=== PATIENT | male | born 1945 | race Caucasian/White ===

== ENCOUNTER 2021-02-08 23:26 | Emergency (ER) | payer MEDICARE, OTHER ==
[~2021-02-08 23:26] MED LIST: Sodium Chloride 0.9% 1,000 ML IV ONE
[2021-02-08] MEDS: EPINEPHrine 1:10,000 1 MG/10 ML Syringe IVPUSH PRN ×4 (23:30→23:45)
[2021-02-08] MEDS ORDERED: Sodium Bicarbonate 8.4% 50 MEQ/50 ML Syringe IVPUSH ONE (23:30)
--- NOTE | 2021-02-09 01:17 | EDM.PDOC ---
ED HPI GENERAL MEDICAL PROBLEM - General Chief Complaint: CPR in Progress Stated Complaint: CPR IN PROGRESS Time Seen by Provider: 02/08/21 23:26 Source of Information: Reports: EMS History Limitations: Reports: Other (non responsive) - History of Present Illness INITIAL COMMENTS - FREE TEXT/NARRATIVE: witnessed collapse by his .. CPR was started on the scene. h/o COPD, HTN and morbid obesity. EMS started CPR on the scene. Upon arrival to the ER - LMA was inserted. ACLS resuscitation was initiated. ED ROS GENERAL - Review of Systems Review Of Systems: Unable To Obtain Reason Not Obtained: due to non responsiveness ED EXAM, CPR - Physical Exam Exam: See Below Limited By: Unresponsive Course - Re-Assessments/Exams Free Text/Narrative Re-Assessment/Exam: Upon arrival patient was cyanosed and unresponsive. intubation by LMA IO x1 Multiple rounds of CPR - IV epi x5. pupils were fixed and dilated -- unresponsive announced at 23:50 Departure - Departure Time of Disposition: 01:20 Disposition: 20 Clinical Impression: Cardiac arrest - Discharge Information *PRESCRIPTION DRUG MONITORING PROGRAM REVIEWED*: Not Applicable *COPY OF PRESCRIPTION DRUG MONITORING REPORT IN PATIENT LARS: Not Applicable - Problem List & Annotations (1) Cardiac arrest SNOMED Code(s): 352859628 Code(s): I46.9 - CARDIAC ARREST, CAUSE UNSPECIFIED Status: Acute Priority: High - Problem List Review Problem List Initiated/Reviewed/Updated: Yes - Assessment/Plan Plan: - family on bedside - medical claims processor - follow hospital protocol
== END 2021-02-08 23:50 | disposition expired ==
LOC: LB.ED 23:26
DX: I46.9 Cardiac arrest, cause unspecified (principal)
CPT/HCPCS: 31500; 36680; 92950; 99285-25; J0171; J7030